=== PATIENT | female | born 1935 | race Caucasian/White ===

== ENCOUNTER → 2016-11-15 | Outpatient (CLI) | payer BC ==
[2016-11-15 12:31] LABS: HEMATOCRIT 42.8 % (37.0-47.0); HEMOGLOBIN 14.5 g/dL (12.0-16.0); MEAN CORPUSCULAR HEMOGLOBIN 30.1 PG (27-31); MEAN CORPUSCULAR HGB CONC 33.9 g/dL (33-37); MEAN PLATELET VOLUME 10.7 FL (7.4-12.2); RED BLOOD COUNT 4.81 10^6/uL (4.20-5.40)
[2016-11-15 13:01] LABS: BUN/CREATININE RATIO 27.5 (6-20); CALCIUM 11.2 mg/dL (8.7-10.7); CHOL/HDL RATIO 2.61 RATIO (0-4.0); LDL CHOLESTEROL,CALCULATED 66.2 mg/dL; SERUM ALBUMIN 4.3 g/dL (3.5-4.8)
[2016-11-15 13:02] LABS: HEMOGLOBIN A1C 5.47 % (4.2-6.0)
[2016-11-16 15:31] LABS: A/G RATIO 1.07 (()); ALB PEP SER 3.8 g/dL (3.4-4.7); ALP1 GLOB 0.3 g/dL (0.1-0.3); ALP2 GLOB 1.1 g/dL (0.6-1.0); GAMMA GLOBS 1.1 g/dL (0.6-1.6)
== END ==
LOC: MOB LAB 11:32
PROVIDERS: ATTEND Internal Medicine
DX: E03.9 Hypothyroidism, unspecified (principal); I10 Essential (primary) hypertension; E61.1 Iron deficiency; E87.6 Hypokalemia; J44.9 Chronic obstructive pulmonary disease, unspecified; G60.9 Hereditary and idiopathic neuropathy, unspecified
CPT/HCPCS: 36415; 80053; 80061; 82607; 82746; 83036; 83921; 84155; 84165; 84443; 84550; 85027; 85652; 86038; 86431